=== PATIENT | female | born 1965 | race Caucasian/White ===

== ENCOUNTER 2019-06-13 09:40 | Emergency (ER) | payer OTHER ==
[~2019-06-13] VITALS: Ht 165.1 cm; Wt 90.7 kg
[2019-06-13] MEDS ORDERED: AMLODIPINE-OLM1 EAC2 (09:48)
== END 2019-06-13 12:37 | disposition home or self-care (01) ==
LOC: ER 09:40
DX: M54.5 Low back pain (principal)